=== PATIENT | male | born 1960 | race African-American/Black ===

== ENCOUNTER 2018-03-19 18:28 | Emergency (ER) | payer OTHER ==
[~2018-03-19] VITALS: Ht 182.9 cm; Wt 79.4 kg
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
[2018-03-19 18:53] VITALS: BP 124/86
[2018-03-19] MEDS ORDERED: Bacitracin Oint UD TOPIC ONE (19:00)
[2018-03-19] MEDS ORDERED: Tetanus/Diptheria/Pertussis Vaccine 0.5ml Syr IM ONE (19:00)
[2018-03-19] MEDS ORDERED: IBUPROFEN600 MG ORAL (19:34)
[2018-03-19] MEDS ORDERED: BACITRACIN-P28.35 GM TP (19:34)
[2018-03-19 19:53] VITALS: BP 124/86
--- NOTE | 2018-03-20 08:54 | Diagnostic Imaging Report ---
Indications: Pain, swelling, forearm injury Technique: Two views of the left forearm Comparison: None Findings: No acute fractures. No dislocations. No radiopaque foreign body. Impression: Negative
== END 2018-03-19 19:50 | disposition home or self-care (01) ==
LOC: EDBD 18:28 → EMR 19:05
DX: S51.801A Unspecified open wound of right forearm, initial encounter (principal); W34.09XA Accidental discharge from other specified firearms, initial encounter; Y93.9 Activity, unspecified; Y92.9 Unspecified place or not applicable; Z23 Encounter for immunization
CPT/HCPCS: 90471; 90715; 99283